=== PATIENT | male | born 1955 | race Caucasian/White ===

== ENCOUNTER 2021-10-15 11:03 | Outpatient (CLI) | payer BC ==
[2021-10-15 12:05] LABS: #Eosinphils 0.1 10x3/uL (0.0-0.5); #Monocytes 0.3 10x3/uL (0.0-1.1); #Neutrophils 3.2 10x3/uL (1.5-8.4); %Basophils 0.4 % (0.0-2.0); %Eosinophils 2.8 % (0.0-6.0); %Lymphocytes 21.7 % (18.0-47.0); %Monocytes 5.7 % (0.0-10.0); %Neutrophils 68.5 % (40.0-75.0); Hemoglobin 12.9 g/dL (13.5-17.5); Mean Corpuscular HGB CONC 34.7 g/dL (32.0-36.0); Mean Corpuscular Hemoglobin 30.2 pg (27.0-33.0); Mean Corpuscular Volume 87.1 fl (81.2-95.1); Mean Platelet Volume 8.8 fl (7.4-10.4); Platelet Count 196 10x3/uL (150-450); RBC Distribution Width 12.6 % (11.5-14.5); Red Blood Cell (RBC) Count 4.27 10x6/uL (4.32-5.72); White Blood Cell (WBC) Count 4.6 10x3/uL (3.5-10.5)
[2021-10-15 12:28] LABS: Anion Gap 13 mmol/L (10-20); BUN (Urea Nitrogen) 19 mg/dL (8.4-25.7); Calc. Creatinine Clearance 0 mL/min (70-130); Calcium 8.9 mg/dL (7.8-10.44); Carbon Dioxide 25 mmol/L (23-31); Chloride 105 mmol/L (98-107); Estimated GFR 97; Glucose 92 mg/dL (80-115); Sodium 139 mmol/L (136-145)
== END 2021-10-15 11:04 | disposition home or self-care (01) ==
LOC: LABBT 11:03
PROVIDERS: ATTEND Orthopaedic Surgery
DX: Z01.818 Encounter for other preprocedural examination (principal); M19.011 Primary osteoarthritis, right shoulder; Z20.822 Contact with and (suspected) exposure to COVID-19
CPT/HCPCS: 80048; 85025; 87811; 93005; 93010

== ENCOUNTER 2021-10-18 05:55 | Day surgery (SDC) | payer BC ==
[2021-10-16 12:20] VITALS: BMI 34.9
[2021-10-18] MEDS ORDERED: fentaNYL Citrate/PF 100 MCG/2 ML SYRINGE ONE (06:17)
[2021-10-18] MEDS ORDERED: Midazolam HCl 2 mg/2 ml Vial ONE ×2 (06:39→06:40)
[2021-10-18] MEDS ORDERED: Fentanyl 100 MCG/2 ML VIAL ONE (06:39)
[2021-10-18] MEDS ORDERED: Tranexamic Acid 1,000 MG/10 ML VIAL ONE (07:09)
[2021-10-18] MEDS ORDERED: Sodium Chloride 0.9% 100 ML ONE ×2 (07:10→07:16)
[2021-10-18] MEDS ORDERED: CEFAZOLIN 2 GM VIAL ONE (07:16)
[2021-10-18] MEDS ORDERED: VANCOMYCIN 2 GRAM/500 ML BAG 2 GM in Premix Bag 1 BAG IVPB SCH (07:30)
[2021-10-18] MEDS ORDERED: Rocuronium Bromide 10 MG/ML (10ML VIAL) ONE (07:51)
[2021-10-18] MEDS ORDERED: Dexamethasone 20 MG/5 ML VIAL ONE (07:51)
[2021-10-18] MEDS ORDERED: Glycopyrrolate 0.2 MG/ML 5 ML SYRINGE ONE (07:51)
[2021-10-18] MEDS ORDERED: Ketorolac Tromethamine 30 MG/ML VIAL ONE (07:51)
[2021-10-18] MEDS ORDERED: Lidocaine 1% PF 5 ML VIAL ONE (07:51)
[2021-10-18] MEDS ORDERED: Ropivacaine 0.5% HCl/PF (150 MG/30 ML VIAL) ONE (07:51)
[2021-10-18] MEDS ORDERED: Phenylephrine 10 MG/ML VIAL ONE (07:51)
[2021-10-18] MEDS ORDERED: Bupivacaine HCl 0.5%/Epinephrine 1:200,000/PF 30 ml Vial ONE (07:51)
[2021-10-18] MEDS ORDERED: ePHEDrine 50 MG/ML VIAL ONE (07:51)
[2021-10-18] MEDS ORDERED: Ondansetron PF 4 MG/2 ML Vial ONE (07:51)
[2021-10-18] MEDS ORDERED: PROPOFOL 200 MG/20 ML VIAL ONE (07:51)
[2021-10-18] MEDS ORDERED: Promethazine HCl 25 MG/ML VIAL IM PRN (08:00)
[2021-10-18] MEDS ORDERED: Ondansetron PF 4 MG/2 ML Vial IVP PRN (08:00)
[2021-10-18] MEDS ORDERED: Ropivacaine 0.2% 550 ML 550 ML NERVE BLCK SCH (08:00)
[2021-10-18] MEDS ORDERED: Zolpidem Tartrate 5 MG TAB PO PRN (08:00)
[2021-10-18] MEDS ORDERED: HYDROcodone/Acetaminophen 5/325 mg Tablet PO PRN ×2 (08:00)
[2021-10-18] MEDS ORDERED: traMADol HCl 50 MG TAB PO PRN ×2 (08:00)
[2021-10-18] MEDS ORDERED: Bupivacaine PF 0.5% 30 ML VIAL ONE (08:40)
== END 2021-10-18 13:00 | disposition home or self-care (01) ==
LOC: SDC 05:55
PROVIDERS: ATTEND Orthopaedic Surgery
PROC: 0RRJ0JZ Replacement of Right Shoulder Joint with Synthetic Substitute, Open Approach (ICD-10-PCS; principal; 2021-10-18)
PROC: 3E0T3BZ Introduction of Anesthetic Agent into Peripheral Nerves and Plexi, Percutaneous Approach (ICD-10-PCS; principal; 2021-10-18)
DX: M19.011 Primary osteoarthritis, right shoulder (principal); I10 Essential (primary) hypertension; E66.9 Obesity, unspecified; Z68.35 Body mass index [BMI] 35.0-35.9, adult; Z86.16 Personal history of COVID-19; Z79.899 Other long term (current) drug therapy
CPT/HCPCS: A4306; C1713; C1776; J0690; J1100; J1885; J2250; J2370; J2405; J2704; J2710; J2795; J3010; J3370; J3490; S0020

== ENCOUNTER 2024-11-02 13:06 | Outpatient (CLI) | payer MEDICARE, BC | END 2024-11-02 13:07 | disposition home or self-care (01) | LOC: SCSMRI 13:06 | PROVIDERS: ATTEND Family Medicine | DX: M47.22 Other spondylosis with radiculopathy, cervical region (principal); M50.11 Cervical disc disorder with radiculopathy, high cervical region; M50.122 Cervical disc disorder at C5-C6 level with radiculopathy; M48.02 Spinal stenosis, cervical region; M48.03 Spinal stenosis, cervicothoracic region | CPT/HCPCS: 72141 ==